=== PATIENT | female | born 1990 | race Two or more races ===

== ENCOUNTER 2016-10-05 08:00 | Emergency (ER) | payer OTHER | END 2016-10-05 09:55 | disposition home or self-care (01) | LOC: ED 08:00 | DX: J02.0 Streptococcal pharyngitis (principal) ==

== ENCOUNTER 2016-10-08 21:32 | Emergency (ER) | payer OTHER ==
[2016-10-08] MEDS ORDERED: IOPAMIDOL 300 (61%) 100 ML VIAL IV ONE (21:33)
[2016-10-08] MEDS ORDERED: PIPERACILLIN-TAZO PREMIX BAG 50 ML IV ONE (23:02)
[2016-10-08] MEDS ORDERED: SODIUM CHLORIDE 0.9% 1,000 ML ONE (23:02)
[2016-10-08] MEDS ORDERED: DEXAMETHASONE SOD PHOS 10 MG/1 ML VIAL ONE (23:02)
[2016-10-08] MEDS ORDERED: HYDROMORPHONE HCL 1 MG/ML SYRINGE ONE (23:02)
[2016-10-08] MEDS ORDERED: KETOROLAC TROMETHAMINE 30 MG/ML 1 ML VIAL ONE (23:02)
[2016-10-08] MEDS ORDERED: ONDANSETRON 4 MG/2ML 2 ML VIAL ONE (23:02)
[2016-10-08 23:04] LABS: BASO # 0.1 K/mm3 (0.0-0.2); BASO % 0.5 % (0.2-1.0); EOS # 0.1 (0.0-0.5); EOS % 0.8 % (0.9-2.9); HEMATOCRIT 42.8 % (37.0-47.0); HEMOGLOBIN 13.8 gm/l (12.0-16.0); IMM NEUT # 0.1 K/mm3 (0-0.2); IMM NEUT% 0.9 % (0-1); LYMPH # 2.5 (1.0-4.8); LYMPH % 16.7 % (15-45); MEAN CELL VOLUME 83.3 fl (81.0-99.0); MEAN CORPUSCULAR HEMOGLOBIN 26.8 pg (27.0-31.0); MEAN CORPUSCULAR HGB CONC 32.2 g/dl (33.0-37.0); MONO % 6.7 % (4-12); NEUT % 74.4 % (43-75); PLATELET COUNT 324 K/mm3 (130-400); RED CELL DISTRIBUTION WIDTH 13.4 % (11.5-14.5)
[2016-10-08 23:27] LABS: ALBUMIN 4.2 gm/dL (3.5-5.7); CALCIUM 9.6 mg/dL (8.6-10.3)
--- NOTE | 2016-10-09 08:03 | CT ---
NECK CT WITH CONTRAST HISTORY: Worsening sore throat. Pain now radiating to the right ear. Following the administration of 80 mL Isovue-300intravenous contrast, contiguous axial images were acquired from the the frontal sinuses to the level of the aruna.. COMPARISON: None. FINDINGS: PHARYNX: Asymmetric prominence of oropharyngeal soft tissues with near complete airway effacement. On the right, there is ill-defined hypoattenuation worrisome for developing peritonsillar abscess without clear rim-enhancing and at this point this measures 2.0 x 2.0 cm in axial dimensions and 3.2 cm in height. LARYNX: Symmetric appearance, without abnormal enhancing lesion. PAROTID AND SUBMANDIBULAR GLANDS: No dominant focal lesion. THYROID GLAND: No focal lesion noted.. DEEP NECK SPACES: Subtle right-sided parapharyngeal edema. No retropharyngeal edema identified. CERVICAL LYMPH NODES: Multiple prominent lymph nodes including 2.2 cm right jugulodigastric lymph node, 2.1 cm left jugulodigastric lymph node, 1.8 cm right 1B lymph node, 2.1 cm right level 3 lymph node, with a generally increased number of lymph nodes identified. VISIBLE LUNGS: No gross airspace disease.. VISIBLE MEDIASTINUM: Precarinal lymph node measures 1.6 x 4.2 cm in size. Minor residual thymic tissue. VISIBLE INTRACRANIAL COMPARTMENT: No gross mass effect or abnormal enhancement. MAJOR VASCULAR STRUCTURES: Grossly unremarkable. OSSEOUS STRUCTURES: No destructive lesions. Visible paranasal sinuses grossly clear. IMPRESSION: Prominence of oropharyngeal soft tissues with enhancement, worrisome for tonsillitis; this results in significant effacement of the oropharyngeal airway. 3.2 x 2.0 x 2.0 hypoattenuating focus on the right, worrisome for peritonsillar phlegmon/early abscess formation. Associated reactive adenopathy. Preliminary report relayed to the Emergency Medicine medical service by Dr. Vela on 10/09/2016 at 0012 hours.
== END 2016-10-09 01:08 | disposition home or self-care (01) ==
LOC: ED 21:32
DX: J02.0 Streptococcal pharyngitis (principal); J03.90 Acute tonsillitis, unspecified; R11.2 Nausea with vomiting, unspecified
CPT/HCPCS: 83605; 84703; 85025; 87040 ×2; 87070; 80053; 87880; 70491; 96375 ×4; 99284; 96365; 36415; 99283; J1170; J1100; J1885; J2405; J2543; J7030; Q9967